=== PATIENT | female | born 1975 | race Caucasian/White ===

== ENCOUNTER 2016-09-28 22:33 | Emergency (ER) | payer MEDICAID ==
[2016-09-28 22:42] VITALS: BP 110/72
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
== END 2016-09-28 23:28 | disposition home or self-care (01) ==
LOC: DL.ED 22:33
DX: S63.502A Unspecified sprain of left wrist, initial encounter (principal); K21.9 Gastro-esophageal reflux disease without esophagitis; F41.9 Anxiety disorder, unspecified; F32.9 Major depressive disorder, single episode, unspecified; F17.210 Nicotine dependence, cigarettes, uncomplicated; D64.9 Anemia, unspecified; Z88.2 Allergy status to sulfonamides; Z90.49 Acquired absence of other specified parts of digestive tract; Z88.8 Allergy status to other drugs, medicaments and biological substances; Z79.899 Other long term (current) drug therapy; Z87.440 Personal history of urinary (tract) infections; X58.XXXA Exposure to other specified factors, initial encounter; Y92.009 Unspecified place in unspecified non-institutional (private) residence as the place of occurrence of the external cause
CPT/HCPCS: 73110-LT; 99283

== ENCOUNTER 2017-08-12 23:25 | Emergency (ER) | payer MEDICAID, SELFPAY ==
--- NOTE | 2017-08-12 23:35 | EDM.PDOC ---
ED HPI GENERAL MEDICAL PROBLEM - General Chief Complaint: General Stated Complaint: CONCUSSION? 3 NIGHTS AGO [id number] Time Seen by Provider: 08/12/17 23:35 Source of Information: Reports: Patient, Family History Limitations: Reports: No Limitations - History of Present Illness INITIAL COMMENTS - FREE TEXT/NARRATIVE: Presents with c/o generalized weakness fatigue, poor concentration. Hx fall on Wednesday when slipped on rug in [place]. fell first on to forehead, possible LOC. then got up and fell forward striking head on bathtub. Pain to left lide of jaw. Temporal Head Pain Score (Numeric/FACES): 3 - Related Data Allergies Allergy/AdvReac Type Severity Reaction Status Date / Time Sulfa (Sulfonamide Allergy Intermediate Hives Verified 08/12/17 23:50 Antibiotics) levofloxacin [From Levaquin] Allergy Muscle Verified 08/12/17 23:50 Aches Home Meds: Home Meds Lisdexamfetamine [Vyvanse] 1 tab PO DAILY 08/05/13 [History] Pregabalin [Lyrica] 300 mg PO BID 08/05/13 [History] Venlafaxine HCl [Venlafaxine ER] 0.5 tab PO ASDIRECTED 08/05/13 [History] oxyCODONE 10 mg PO QID 09/22/14 [History] Methocarbamol [Robaxin] 500 mg PO QID PRN 05/23/15 [History] Ibuprofen 200 mg PO Q6HR PRN 09/28/16 [History] Baclofen [Baclofen] 10 mg PO BID 08/12/17 [History] Past Medical History HEENT History: Reports: Impaired Vision, Sinusitis Cardiovascular History: Reports: None Respiratory History: Reports: Bronchitis, Recurrent Gastrointestinal History: Reports: GERD Genitourinary History: Reports: UTI, Recurrent 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 bulging discs. spinal stenosis Neurological History: Reports: Neuropathy, Peripheral Psychiatric History: Reports: Anxiety, Depression Endocrine/Metabolic History: Reports: None Hematologic History: Reports: Anemia Immunologic History: Reports: None Oncologic (Cancer) History: Reports: None Dermatologic History: Reports: None - Infectious Disease History Infectious Disease History: Reports: Chicken Pox - Past Surgical History Female Surgical History: Reports: Other (See Below) Social & Family History - Family History Family Medical History: Noncontributory - Tobacco Use Smoking Status *Q: Current Every Day Smoker Years of Tobacco use: 20 Packs/Tins Daily: 1 Used Tobacco, but Quit: No Second Hand Smoke Exposure: Yes - Caffeine Use Caffeine Use: Reports: Soda - Alcohol Use Days Per Week of Alcohol Use: 0 - Recreational Drug Use Recreational Drug Use: No - Sexual History Sexual History: Reports: Sexually Active - Living Situation & Occupation Living situation: Reports: with Significant Other Occupation: Employed ED ROS GENERAL - Review of Systems Review Of Systems: See Below Constitutional: Reports: Malaise, Weakness, Fatigue HEENT: Reports: No Symptoms Respiratory: Reports: Cough Cardiovascular: Reports: No Symptoms GI/Abdominal: Reports: No Symptoms : Reports: No Symptoms, Incontinence Skin: Reports: No Symptoms Neurological: Reports: Dizziness, Headache, Tingling, Weakness Psychiatric: Reports: No Symptoms Hematologic/Lymphatic: Reports: No Symptoms Immunologic: Reports: No Symptoms, Other (admits recent initiation of medication to treat hep C, question if current cymptoms related to medication or to fall. Has not followed up wit primary care. ) ED EXAM, GENERAL - Physical Exam Exam: See Below Exam Limited By: No Limitations General Appearance: Alert, No Apparent Distress, Anxious Eye Exam: Bilateral Eye: EOMI, Normal Inspection, Nystagmus, PERRL (5mm), Proptosis Ears: Normal External Exam, Normal TMs Ear Exam: Bilateral Ear: Canal Normal Nose: Normal Inspection Throat/Mouth: Normal Inspection, Normal Lips, Normal Teeth, Normal Gums Head: Atraumatic, Normocephalic Neck: Normal Inspection Respiratory/Chest: No Respiratory Distress Cardiovascular: Normal Peripheral Pulses, Regular Rate, Rhythm, No Murmur, Systolic Murmur GI/Abdominal: Normal Bowel Sounds, Soft. No: Distended Back Exam: Normal Inspection Extremities: Normal Inspection Neurological: Alert, Oriented, Normal Cognition, Memory Loss Recent Events. No : Disoriented, Slow to Respond Skin Exam: Warm, Dry, Intact, Normal Color Course - Vital Signs Last Recorded V/S: Last Vital Signs Temp 98 F 08/13/17 02:00 Pulse 68 08/13/17 02:00 Resp 18 08/13/17 02:00 BP 121/78 08/13/17 02:00 Pulse Ox 99 03/02/18 02:00 - Orders/Labs/Meds Labs: Laboratory Tests 08/13/17 08/13/17 08/13/17 Range/Units 00:38 00:38 00:47 WBC 4.8 L (5.0-10.0) 10^3/uL RBC 3.97 L (4.2-5.4) 10^6/uL Hgb 10.5 L (12.0-16.0) g/dL Hct 32.1 L (37.0-47.0) % MCV 80.9 D (80-100) fL MCH 26.4 L (27.0-34.0) pg MCHC 32.7 L (33.0-35.0) g/dL Plt Count 149 L (150-450) 10^3/uL Neut % (Auto) 36.6 L (42.2-75.2) % Lymph % (Auto) 43.1 (20.5-50.1) % [place] % (Auto) 13.8 H (2-8) % Eos % (Auto) 5.9 H (1.0-3.0) % Baso % (Auto) 0.6 (0.0-1.0) % Sodium 138 (135-145) mmol/L Potassium 3.8 (3.6-5.0) mmol/L Chloride 104 (101-111) mmol/L Carbon Dioxide 27.0 (21.0-31.0) mmol/L Anion Gap 10.8 BUN 8 (7-18) mg/dL Creatinine 0.6 (0.6-1.3) mg/dL Est Cr Clr Drug Dosing 113.27 mL/min Estimated GFR (MDRD) > 60 BUN/Creatinine Ratio 13.33 Glucose 94 (74-105) mg/dL Calcium 8.6 (8.4-10.2) mg/dl Magnesium 1.7 L (1.8-2.5) mg/dL Total Bilirubin 0.3 (0.2-1.0) mg/dL AST 23 (10-42) IU/L ALT 18 (10-60) IU/L Alkaline Phosphatase 55 (42-121) IU/L Total Protein 6.8 (6.7-8.2) g/dl Albumin 3.7 (3.2-5.5) g/dl Globulin 3.1 Albumin/Globulin Ratio 1.19 Urine Color Yellow (YELLOW) Urine Appearance Slightly cloudy (CLEAR) Urine pH 6.0 (5.0-9.0) Ur Specific [place] 1.020 (1.005-1.030) Urine Protein Negative (NEGATIVE) Urine Glucose (UA) Negative (NEGATIVE) Urine Ketones Negative (NEGATIVE) Urine Occult Blood Negative (NEGATIVE) Urine Nitrite Negative (NEGATIVE) Urine Bilirubin Negative (NEGATIVE) Urine Urobilinogen 0.2 (0.2-1.0) mg/dL Ur Leukocyte Esterase Negative (NEGATIVE) Urine RBC 0-5 /HPF Urine WBC 0-5 (0-5/HPF) /HPF Ur Epithelial Cells Many H /HPF Urine Bacteria Few (0-FEW/HPF) /HPF Urine Opiates Screen (NEGATIVE) Ur Oxycodone Screen (NEGATIVE) Urine Methadone Screen (NEGATIVE) Ur Barbiturates Screen (NEGATIVE) U Tricyclic Antidepress (NEGATIVE) Ur Phencyclidine Scrn (NEGATIVE) Ur Amphetamine Screen (NEGATIVE) U Methamphetamines Scrn (NEGATIVE) Urine MDMA Screen (NEGATIVE) U Benzodiazepines Scrn (NEGATIVE) Urine Cocaine Screen (NEGATIVE) U Marijuana (THC) Screen (NEGATIVE) 08/13/17 Range/Units 00:47 WBC (5.0-10.0) 10^3/uL RBC (4.2-5.4) 10^6/uL Hgb (12.0-16.0) g/dL Hct (37.0-47.0) % MCV (80-100) fL MCH (27.0-34.0) pg MCHC (33.0-35.0) g/dL Plt Count (150-450) 10^3/uL Neut % (Auto) (42.2-75.2) % Lymph % (Auto) (20.5-50.1) % [place] % (Auto) (2-8) % Eos % (Auto) (1.0-3.0) % Baso % (Auto) (0.0-1.0) % Sodium (135-145) mmol/L Potassium (3.6-5.0) mmol/L Chloride (101-111) mmol/L Carbon Dioxide (21.0-31.0) mmol/L Anion Gap BUN (7-18) mg/dL Creatinine (0.6-1.3) mg/dL Est Cr Clr Drug Dosing mL/min Estimated GFR (MDRD) BUN/Creatinine Ratio Glucose (74-105) mg/dL Calcium (8.4-10.2) mg/dl Magnesium (1.8-2.5) mg/dL Total Bilirubin (0.2-1.0) mg/dL AST (10-42) IU/L ALT (10-60) IU/L Alkaline Phosphatase (42-121) IU/L Total Protein (6.7-8.2) g/dl Albumin (3.2-5.5) g/dl Globulin Albumin/Globulin Ratio Urine Color (YELLOW) Urine Appearance (CLEAR) Urine pH (5.0-9.0) Ur Specific [place] (1.005-1.030) Urine Protein (NEGATIVE) Urine Glucose (UA) (NEGATIVE) Urine Ketones (NEGATIVE) Urine Occult Blood (NEGATIVE) Urine Nitrite (NEGATIVE) Urine Bilirubin (NEGATIVE) Urine Urobilinogen (0.2-1.0) mg/dL Ur Leukocyte Esterase (NEGATIVE) Urine RBC /HPF Urine WBC (0-5/HPF) /HPF Ur Epithelial Cells /HPF Urine Bacteria (0-FEW/HPF) /HPF Urine Opiates Screen Negative (NEGATIVE) Ur Oxycodone Screen Negative (NEGATIVE) Urine Methadone Screen Positive H (NEGATIVE) Ur Barbiturates Screen Negative (NEGATIVE) U Tricyclic Antidepress Negative (NEGATIVE) Ur Phencyclidine Scrn Negative (NEGATIVE) Ur Amphetamine Screen Positive H (NEGATIVE) U Methamphetamines Scrn Negative (NEGATIVE) Urine MDMA Screen Negative (NEGATIVE) U Benzodiazepines Scrn Negative (NEGATIVE) Urine Cocaine Screen Negative (NEGATIVE) U Marijuana (THC) Screen Negative (NEGATIVE) Meds: Medications Discontinued Medications Generic Name Dose Route Start Last Admin Trade Name Freq PRN Reason Stop Dose Admin Famotidine 20 mg 08/13/17 01:10 08/13/17 01:39 Pepcid IVPUSH 08/13/17 01:11 Not Given ONETIME ONE Hydromorphone HCl 1 mg 08/13/17 01:10 08/13/17 01:39 Dilaudid IVPUSH 08/13/17 01:11 Not Given ONETIME ONE - Radiology Interpretation Free Text/Narrative:: Head neck and facila CT negative - Re-Assessments/Exams Free Text/Narrative Re-Assessment/Exam: 08/13/17 05:52 Patient to follow up in am with Infectious Disease or Primary provider ordering Hep C medication. Patient aware of risk of "stopping medication such as this for Hep C treatment. Results of studies reviewed with patient and family. Reviewed adverse drug reaction and head injury instructions with patient and significant other. . Departure - Departure Time of Disposition: 01:50 Disposition: Home, Self-Care 01 Condition: Good Clinical Impression: Side effect of medication, Generalized weakness Fall in home Qualifiers: Encounter type: initial encounter Qualified Code(s): W19.XXXA - Unspecified fall, initial encounter Fatigue Qualifiers: Fatigue type: other Qualified Code(s): R53.83 - Other fatigue Headache Qualifiers: Headache type: unspecified Headache chronicity pattern: unspecified pattern Intractability: not intractable Qualified Code(s): R51 - Headache - Discharge Information Instructions: Concussion, Adult, [id number], Fatigue, Glecaprevir; pibrentasvir oral tablets Referrals: Ruel Montanez NP [Primary Care Provider] - Forms: ED Department Discharge Additional Instructions: rest light activity , change positions slowly Follow up with primary care in morning to discuss symptoms and possible medication side effects
[2017-08-13 01:11] LABS: CHLORIDE,CL 104 mmol/L (101-111); SODIUM,NA 138 mmol/L (135-145)
[2017-08-13] MEDS: Famotidine 20 MG/2 ML SDV IVPUSH ONE (01:39)
[2017-08-13] MEDS: HYDROmorphone 1 MG/ML Syringe IVPUSH ONE (01:39)
[2017-08-13 02:15] VITALS: BP 121/78
== END 2017-08-13 02:04 | disposition home or self-care (01) ==
LOC: DL.ED 23:25
DX: R51 Headache (principal); R53.1 Weakness; R53.83 Other fatigue; T50.905A Adverse effect of unspecified drugs, medicaments and biological substances, initial encounter; F17.210 Nicotine dependence, cigarettes, uncomplicated; Z88.2 Allergy status to sulfonamides; Z88.1 Allergy status to other antibiotic agents; Z79.899 Other long term (current) drug therapy; W01.198A Fall on same level from slipping, tripping and stumbling with subsequent striking against other object, initial encounter
CPT/HCPCS: 36415; 70450; 70486; 72125; 80053; 80305; 81001; 83735; 85025; 99284

== ENCOUNTER 2018-03-18 16:30 | Emergency (ER) | payer MEDICAID ==
[2018-03-18 16:45] VITALS: BP 150/90
--- NOTE | 2018-03-18 17:41 | EDM.PDOC ---
Scribed by Cadence Dunne 03/18/18 [id number] for Pj Babcock MD ED HPI GENERAL MEDICAL PROBLEM - General Chief Complaint: ENT Problem Stated Complaint: EAR INFECTION, STREP [id number] Time Seen by Provider: 03/18/18 16:52 Source of Information: Reports: Patient, RN, RN Notes Reviewed History Limitations: Reports: No Limitations - History of Present Illness INITIAL COMMENTS - FREE TEXT/NARRATIVE: Patient presents to ER with complaint of bilateral ear pain, sore throat, vaginal yeast infection and dysuria for the past several days. Admits to fever and chills sensation but has not measured her temperature.About 10 days she had stomach flu with nausea, vomiting and diarrhea but states that has all resolved. Onset: Gradual Duration: Getting Worse Location: Reports: Generalized Quality: Reports: Ache Severity: Moderate Improves with: Reports: None Worsens with: Reports: None Associated Symptoms: Reports: No Other Symptoms - Related Data Allergies Allergy/AdvReac Type Severity Reaction Status Date / Time Sulfa (Sulfonamide Allergy Intermediate Hives Verified 08/12/17 23:50 Antibiotics) levofloxacin [From Levaquin] Allergy Muscle Verified 08/12/17 23:50 Aches Home Meds: Home Meds Lisdexamfetamine [Vyvanse] 1 tab PO DAILY 08/05/13 [History] Pregabalin [Lyrica] 300 mg PO BID 08/05/13 [History] Ibuprofen 200 mg PO Q6HR PRN 09/28/16 [History] Baclofen 10 mg PO BID 08/12/17 [History] Past Medical History HEENT History: Reports: Impaired Vision, Sinusitis Cardiovascular History: Reports: None Respiratory History: Reports: Bronchitis, Recurrent Gastrointestinal History: Reports: GERD Genitourinary History: Reports: UTI, Recurrent 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 bulging discs. spinal stenosis Neurological History: Reports: Neuropathy, Peripheral Psychiatric History: Reports: Anxiety, Depression Endocrine/Metabolic History: Reports: None Hematologic History: Reports: Anemia Immunologic History: Reports: None Oncologic (Cancer) History: Reports: None Dermatologic History: Reports: None - Infectious Disease History Infectious Disease History: Reports: Chicken Pox - Past Surgical History Female Surgical History: Reports: Other (See Below) Social & Family History - Family History Family Medical History: Noncontributory - Caffeine Use Caffeine Use: Reports: Soda - Sexual History Sexual History: Reports: Sexually Active - Living Situation & Occupation Living situation: Reports: with Significant Other Occupation: Employed ED ROS ENT - Review of Systems Review Of Systems: ROS reveals no pertinent complaints other than HPI. ED EXAM, ENT - Physical Exam Exam: See Below Exam Limited By: No Limitations General Appearance: Alert, WD/WN, No Apparent Distress Eye Exam: Bilateral Eye: Normal Inspection Ears: Other (slightly bulging, erythematous and dull without perforation or drainage. ) Nose: No Blood, Injected Turbinates, Other (purulent sinus drainage) Mouth/Throat: Normal Gums, Normal Lips, Normal Teeth, Pharyngeal Erythema (with post nasal drip) Head: Atraumatic, Normocephalic Neck: Other (shoddy cervical lymphadenopathy. No nuchal rigidity.) Respiratory/Chest: No Respiratory Distress, Lungs Clear, Normal Breath Sounds, No Accessory Muscle Use, Chest Non-Tender Cardiovascular: Normal Peripheral Pulses, Regular Rate, Rhythm, No Edema, No Gallop, No JVD, No Murmur, No Rub GI/Abdominal: Normal Bowel Sounds, Soft, Non-Tender, No Distention (Female) Exam: Deferred Rectal (Female) Exam: Deferred Back: Normal Inspection, Full Range of Motion Extremities: Normal Inspection Neurological: Alert, Oriented, No Motor/Sensory Deficits Psychiatric: Normal Affect, Normal Mood Skin: Warm, Dry, Intact, Normal Color, No Rash Course - Vital Signs Last Recorded V/S: Last Vital Signs Temp 36.7 C 03/18/18 16:44 Pulse 102 H 03/18/18 16:44 Resp 14 03/18/18 16:44 BP 150/90 H 03/18/18 16:44 Pulse Ox 100 03/18/18 16:44 - Orders/Labs/Meds Orders: Active Orders 24 hr Category Date Time Status CULTURE STREP A CONFIRMATION [] Stat Lab 03/18/18 16:34 Results STREP SCRN A RAPID W CULT CONF [] Stat Lab 03/18/18 16:34 Results Labs: Laboratory Tests 03/18/18 03/18/18 Range/Units 17:00 17:00 Urine Color Yellow (YELLOW) Urine Appearance Slightly cloudy (CLEAR) Urine pH 7.0 (5.0-9.0) Ur Specific [place] 1.020 (1.005-1.030) Urine Protein Negative (NEGATIVE) Urine Glucose (UA) Negative (NEGATIVE) Urine Ketones Negative (NEGATIVE) Urine Occult Blood Negative (NEGATIVE) Urine Nitrite Negative (NEGATIVE) Urine Bilirubin Negative (NEGATIVE) Urine Urobilinogen 0.2 (0.2-1.0) mg/dL Ur Leukocyte Esterase Negative (NEGATIVE) Urine RBC 0-5 /HPF Urine WBC 0-5 (0-5/HPF) /HPF Ur Epithelial Cells Moderate H /HPF Amorphous Sediment Rare (0/HPF) /HPF Urine Bacteria Few (0-FEW/HPF) /HPF Urine Mucus Few H /LPF Urine Yeast Few H (0/HPF) /HPF Urine HCG, Qual Negative Rapid strep: Negative. Departure - Departure Time of Disposition: 17:34 Disposition: Home, Self-Care 01 Condition: Good Clinical Impression: Vaginal yeast infection Otitis media Qualifiers: Otitis media type: suppurative Chronicity: acute Laterality: bilateral Recurrence: not specified as recurrent Spontaneous tympanic membrane rupture: without spontaneous rupture Qualified Code(s): H66.003 - Acute suppurative otitis media without spontaneous rupture of ear drum, bilateral Pharyngitis Qualifiers: Pharyngitis/tonsillitis etiology: other specified organisms Qualified Code(s): J02.8 - Acute pharyngitis due to other specified organisms Sinusitis Qualifiers: Sinusitis location: pansinusitis Chronicity: acute Recurrence: non-recurrent Qualified Code(s): J01.40 - Acute pansinusitis, unspecified - Discharge Information Instructions: Otitis Media, Adult, [id number], Sinusitis, Adult, [id number] , Vaginal Yeast Infection, Adult Forms: ED Department Discharge Additional Instructions: RX: Augmentin 875mg. RX: Diflucan 150mg. Frequent salt water gargles until sore throat. Follow up in clinic if not improving in 4 to 5 days. - My Orders Last 24 Hours: My Active Orders 03/18/18 16:34 CULTURE STREP A CONFIRMATION [RM] Stat STREP SCRN A RAPID W CULT CONF [RM] Stat - Assessment/Plan Last 24 Hours: My Active Orders 03/18/18 16:34 CULTURE STREP A CONFIRMATION [RM] Stat STREP SCRN A RAPID W CULT CONF [RM] Stat I have read and agree with the documentation that has been completed regarding this visit. By signing this record, I attest that the documentation was completed in my physical presence and is an accurate record of the encounter.
== END 2018-03-18 17:47 | disposition home or self-care (01) ==
LOC: DL.ED 16:30
DX: H66.003 Acute suppurative otitis media without spontaneous rupture of ear drum, bilateral (principal); B37.3 Candidiasis of vulva and vagina; J02.8 Acute pharyngitis due to other specified organisms; J01.40 Acute pansinusitis, unspecified; F17.210 Nicotine dependence, cigarettes, uncomplicated; Z88.2 Allergy status to sulfonamides; Z88.1 Allergy status to other antibiotic agents; Z79.899 Other long term (current) drug therapy
CPT/HCPCS: 81001; 81025; 87081; 87430; 99282

== ENCOUNTER 2018-03-20 09:47 | Emergency (ER) | payer MEDICAID ==
[2018-03-20 09:54] VITALS: BP 130/79
--- NOTE | 2018-03-20 10:19 | CR ---
Clinical history: 42-year-old female with cough and chest wall pain. Interpretation: Slight dorsolumbar scoliosis. Layne thorax otherwise unremarkable. No sign of rib fracture, pleural hematoma, lung contusion or pneumothorax. Normal cardiac silhouette without cephalization of vascular flow, alveolar edema or dependent pleural effusion. *No lung mass, hilar lymphadenopathy or focal lobar pneumonia. No atelectasis/collapse. CONCLUSION: No acute new cardiopulmonary abnormality when compared to 11 February 2010 film.
--- NOTE | 2018-03-20 10:21 | EDM.PDOC ---
Scribed by Cadence uDnne 03/20/18 1020 for Pj Babcock MD ED HPI GENERAL MEDICAL PROBLEM - General Chief Complaint: Respiratory Problem Stated Complaint: CHEST CONGESTION Time Seen by Provider: 03/20/18 09:50 Source of Information: Reports: Patient, RN, RN Notes Reviewed History Limitations: Reports: Respiratory Distress - History of Present Illness INITIAL COMMENTS - FREE TEXT/NARRATIVE: Patient complains of development of cough, occasional sputum production but mostly dry. It hurts to breathe. Denies any wheezing. She was here on 03/18/18 and diagnosed with sinusitis and otitis media. She has been taking Augmentin 875mg. She does not note much improvement in her sinus or ears yet. Onset: Gradual Duration: Getting Worse Location: Reports: Generalized Quality: Reports: Ache Severity: Severe Improves with: Reports: None Worsens with: Reports: None Associated Symptoms: Reports: No Other Symptoms - Related Data Allergies Allergy/AdvReac Type Severity Reaction Status Date / Time Sulfa (Sulfonamide Allergy Intermediate Hives Verified 03/20/18 09:53 Antibiotics) levofloxacin [From Levaquin] Allergy Muscle Verified 03/20/18 09:53 Aches Home Meds: Home Meds Lisdexamfetamine [Vyvanse] 1 tab PO DAILY 08/05/13 [History] Pregabalin [Lyrica] 300 mg PO BID 08/05/13 [History] Ibuprofen 200 mg PO Q6HR PRN 09/28/16 [History] Baclofen 10 mg PO BID 08/12/17 [History] Amoxicillin/Potassium Clav [Amox-Clav 875-125 mg Tablet] 1 tab PO BID 03/20/18 [ History] Fluconazole [Diflucan] 150 mg PO ASDIRECTED 03/20/18 [History] Past Medical History HEENT History: Reports: Impaired Vision, Sinusitis Cardiovascular History: Reports: None Respiratory History: Reports: Bronchitis, Recurrent Gastrointestinal History: Reports: GERD Genitourinary History: Reports: UTI, Recurrent 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 bulging discs. spinal stenosis Neurological History: Reports: Neuropathy, Peripheral Psychiatric History: Reports: Anxiety, Depression Endocrine/Metabolic History: Reports: None Hematologic History: Reports: Anemia Immunologic History: Reports: None Oncologic (Cancer) History: Reports: None Dermatologic History: Reports: None - Infectious Disease History Infectious Disease History: Reports: Chicken Pox - Past Surgical History Female Surgical History: Reports: Other (See Below) Social & Family History - Family History Family Medical History: Noncontributory - Caffeine Use Caffeine Use: Reports: Soda - Sexual History Sexual History: Reports: Sexually Active - Living Situation & Occupation Living situation: Reports: with Significant Other Occupation: Employed ED ROS GENERAL - Review of Systems Review Of Systems: ROS reveals no pertinent complaints other than HPI. ED EXAM, GENERAL - Physical Exam Exam: See Below Exam Limited By: No Limitations General Appearance: Alert, WD/WN, No Apparent Distress, Anxious Eye Exam: Bilateral Eye: Normal Inspection Ears: Normal Canal, Hearing Grossly Normal, Other (Dull TM's B/L) Nose: No Blood, Other (Injected inferior turbinates) Throat/Mouth: Normal Inspection, Normal Lips, Normal Teeth, Normal Gums, Normal Oropharynx, Normal Voice, No Airway Compromise Head: Atraumatic, Normocephalic Neck: Other ([place] cervical lymphadenopathy, no nuchal rigidity) Respiratory/Chest: No Respiratory Distress, Lungs Clear, Normal Breath Sounds, No Accessory Muscle Use, Other (Dry cough). No: Crackles, Rales, Rhonchi, Wheezing, Splinting Cardiovascular: Regular Rate, Rhythm Back Exam: Normal Inspection Extremities: Normal Inspection Neurological: Alert, Oriented, CN II-XII Intact, Normal Cognition, Normal Gait, No Motor/Sensory Deficits Psychiatric: Normal Affect, Anxious Skin Exam: Warm, Dry, Intact, Normal Color, No Rash Course - Vital Signs Last Recorded V/S: Last Vital Signs Temp 37.1 C 03/20/18 09:53 Pulse 90 03/20/18 09:53 Resp 16 03/20/18 09:53 BP 130/79 03/20/18 09:53 Pulse Ox 99 03/20/18 09:53 - Orders/Labs/Meds Orders: Active Orders 24 hr Category Date Time Status Chest 2V [CR] Stat Exams 03/20/18 09:59 Taken Labs: Laboratory Tests 03/20/18 Range/Units 10:08 WBC 7.2 (5.0-10.0) 10^3/uL RBC 4.38 (4.2-5.4) 10^6/uL Hgb 10.3 L (12.0-16.0) g/dL Hct 33.5 L (37.0-47.0) % MCV 76.5 L D (80-100) fL MCH 23.5 L (27.0-34.0) pg MCHC 30.7 L (33.0-35.0) g/dL Plt Count 164 (150-450) 10^3/uL Neut % (Auto) 65.7 (42.2-75.2) % Lymph % (Auto) 23.6 (20.5-50.1) % [place] % (Auto) 7.9 (2-8) % Eos % (Auto) 2.4 (1.0-3.0) % Baso % (Auto) 0.4 (0.0-1.0) % - Radiology Interpretation Free Text/Narrative:: CXR: no focal consolidations, see Rad. report. Departure - Departure Time of Disposition: 10:17 Disposition: Home, Self-Care 01 Condition: Fair Clinical Impression: Pleurodynia Acute bronchitis Qualifiers: Bronchitis organism: other organism Qualified Code(s): J20.8 - Acute bronchitis due to other specified organisms - Discharge Information *PRESCRIPTION DRUG MONITORING PROGRAM REVIEWED*: No *COPY OF PRESCRIPTION DRUG MONITORING REPORT IN PATIENT MIAH: No Instructions: Acute Bronchitis, Adult, Pleurodynia Forms: ED Department Discharge Additional Instructions: Rx: Promethazine Codeine Syrup *Do not drive while under the influence of this medication. Rx: Prednisone 20mg *Take with food. Continue current antibiotic as prescribed. Take deep breathes several times once every hour while awake. Follow up in clinic in 3 to 5 days. - My Orders Last 24 Hours: My Active Orders 03/20/18 09:59 Chest 2V [CR] Stat - Assessment/Plan Last 24 Hours: My Active Orders 03/20/18 09:59 Chest 2V [CR] Stat I have read and agree with the documentation that has been completed regarding this visit. By signing this record, I attest that the documentation was completed in my physical presence and is an accurate record of the encounter.
== END 2018-03-20 10:30 | disposition home or self-care (01) ==
LOC: DL.ED 09:47
DX: J20.8 Acute bronchitis due to other specified organisms (principal); R07.81 Pleurodynia; Z88.1 Allergy status to other antibiotic agents; Z88.2 Allergy status to sulfonamides; Z79.899 Other long term (current) drug therapy
CPT/HCPCS: 36415; 71046; 85025; 99284

== ENCOUNTER 2019-03-31 19:52 | Emergency (ER) | payer MEDICAID ==
[2019-03-31 20:42] VITALS: BP 134/81; PULSE 109
[2019-03-31] MEDS ORDERED: Azithromycin 250 MG Tab PO ONE (22:17)
[2019-03-31] MEDS ORDERED: Nitrofurantoin Monohydrate/Macrocrystalline 100 MG Cap PO ONE (22:17)
[2019-03-31] MEDS ORDERED: Phenazopyridine 95 MG Tab PO ONE (22:17)
[2019-03-31] MEDS ORDERED: Fluconazole 100 MG Tab PO ONE (22:17)
--- NOTE | 2019-03-31 22:23 | EDM.PDOC ---
ED HPI GENERAL MEDICAL PROBLEM - General Chief Complaint: Genitourinary Problem Stated Complaint: BLADDER INFECTION Time Seen by Provider: 03/31/19 22:19 Source of Information: Reports: Patient History Limitations: Reports: No Limitations - History of Present Illness INITIAL COMMENTS - FREE TEXT/NARRATIVE: 2 days h/o UTI Sx and 1 week h/o sore throat. been on augmentin but not working. Generalized Pain Score (Numeric/FACES): 6 - Related Data Allergies Allergy/AdvReac Type Severity Reaction Status Date / Time Sulfa (Sulfonamide Allergy Intermediate Hives Verified 03/31/19 20:28 Antibiotics) levofloxacin [From Levaquin] Allergy Muscle Verified 03/31/19 20:28 Aches Home Meds: Home Meds Lisdexamfetamine [Vyvanse] 60 mg PO DAILY 08/05/13 [History] Pregabalin [Lyrica] 300 mg PO BID 08/05/13 [History] Ibuprofen 200 mg PO Q6HR PRN 09/28/16 [History] Baclofen 10 mg PO BID 08/12/17 [History] Methocarbamol 500 mg PO TID 03/31/19 [History] Past Medical History HEENT History: Reports: Impaired Vision, Sinusitis Cardiovascular History: Reports: None Respiratory History: Reports: Bronchitis, Recurrent Gastrointestinal History: Reports: GERD Genitourinary History: Reports: UTI, Recurrent [employer] WORKER History: Reports: None Musculoskeletal History: Reports: Back Pain, Chronic Other Musculoskeletal History: degenerative disc dx. bulging discs. spinal stenosis Neurological History: Reports: Neuropathy, Peripheral Psychiatric History: Reports: Anxiety, Depression Endocrine/Metabolic History: Reports: None Hematologic History: Reports: Anemia Immunologic History: Reports: None Oncologic (Cancer) History: Reports: None Dermatologic History: Reports: None - Infectious Disease History Infectious Disease History: Reports: Chicken Pox - Past Surgical History Female Surgical History: Reports: Other (See Below) Social & Family History - Family History Family Medical History: Noncontributory - Tobacco Use Smoking Status *Q: Current Every Day Smoker Years of Tobacco use: 20 Packs/Tins Daily: 0.5 - Caffeine Use Caffeine Use: Reports: Soda - Recreational Drug Use Recreational Drug Use: No - Sexual History Sexual History: Reports: Sexually Active - Living Situation & Occupation Living situation: Reports: with Significant Other Occupation: Employed ED ROS GENERAL - Review of Systems Review Of Systems: ROS reveals no pertinent complaints other than HPI. ED EXAM, RENAL/ - Physical Exam Exam: See Below Exam Limited By: No Limitations General Appearance: Alert, WD/WN, Mild Distress, Other (discomfort) Ears: Hearing Grossly Normal Throat/Mouth: Normal Voice, No Airway Compromise, Other (pharyneal erythma) Head: Atraumatic Neck: Non-Tender, Full Range of Motion Respiratory/Chest: No Respiratory Distress Cardiovascular: Regular Rate, Rhythm GI/Abdominal: Soft, Non-Tender Neurological: Alert, Oriented, Normal Cognition, Normal Gait, No Motor/Sensory Deficits Psychiatric: Tearful Skin Exam: Warm, Dry, Normal Color Lymphatic: No Adenopathy Course - Vital Signs Last Recorded V/S: Last Vital Signs Temp 37.1 C 03/31/19 20:32 Pulse 109 H 03/31/19 20:32 Resp 16 03/31/19 20:32 BP 134/81 03/31/19 20:32 Pulse Ox 98 03/31/19 20:32 - Orders/Labs/Meds Orders: Active Orders 24 hr Category Date Time Status CULTURE STREP A CONFIRMATION [RM] Stat Lab 03/31/19 20:39 Results CULTURE URINE [] Stat Lab 03/31/19 20:39 Received STREP SCRN A RAPID W CULT CONF [RM] Stat Lab 03/31/19 20:39 Results Labs: Laboratory Tests 03/31/19 Range/Units 20:39 Urine Color Yellow (YELLOW) Urine Appearance Slightly cloudy (CLEAR) Urine pH 5.5 (5.0-9.0) Ur Specific [place] >= 1.030 (1.005-1.030) Urine Protein Negative (NEGATIVE) Urine Glucose (UA) Negative (NEGATIVE) Urine Ketones Trace H (NEGATIVE) Urine Occult Blood Negative (NEGATIVE) Urine Nitrite Negative (NEGATIVE) Urine Bilirubin Negative (NEGATIVE) Urine Urobilinogen 0.2 (0.2-1.0) mg/dL Ur Leukocyte Esterase Trace H (NEGATIVE) Urine RBC Not seen /HPF Urine WBC 10-20 H (0-5/HPF) /HPF Ur Epithelial Cells Moderate H (NOT SEEN) /HPF Urine Bacteria Moderate H (0-FEW/HPF) /HPF Urine Mucus Moderate H (NOT SEEN) /LPF Meds: Medications Discontinued Medications Generic Name Dose Route Start Last Admin Trade Name Freq PRN Reason Stop Dose Admin Azithromycin 500 mg 03/31/19 22:17 Zithromax PO 03/31/19 22:18 ONETIME ONE Fluconazole 100 mg 03/31/19 22:17 Diflucan PO 03/31/19 22:18 ONETIME ONE Nitrofurantoin Macrocrystals 100 mg 03/31/19 22:17 Macrobid PO 03/31/19 22:18 ONETIME ONE Phenazopyridine HCl 95 mg 03/31/19 22:17 Urinary Pain Relief PO 03/31/19 22:18 ONETIME ONE - Re-Assessments/Exams Free Text/Narrative Re-Assessment/Exam: 03/31/19 22:20 results discussed with pt. Departure - Departure Time of Disposition: 22:21 Disposition: Home, Self-Care 01 Condition: Good Clinical Impression: UTI, Urinary tract infectious disease, Vaginal yeast infection Pharyngitis Qualifiers: Pharyngitis/tonsillitis etiology: other specified organisms Qualified Code(s): J02.8 - Acute pharyngitis due to other specified organisms - Discharge Information Additional Instructions: 1) avoid solid foods and scratchy foods 2) drink lots of liquids 3) follow up at clinic rx blancavne; z-steph macrobid 100mg bid x 20 pyridium 100mg tid prn x 12 - My Orders Last 24 Hours: My Active Orders 03/31/19 20:39 CULTURE STREP A CONFIRMATION [RM] Stat CULTURE URINE [RM] Stat STREP SCRN A RAPID W CULT CONF [RM] Stat - Assessment/Plan Last 24 Hours: My Active Orders 03/31/19 20:39 CULTURE STREP A CONFIRMATION [RM] Stat CULTURE URINE [RM] Stat STREP SCRN A RAPID W CULT CONF [RM] Stat
== END 2019-03-31 22:26 | disposition home or self-care (01) ==
LOC: DL.ED 19:52
DX: N39.0 Urinary tract infection, site not specified (principal); B37.3 Candidiasis of vulva and vagina; J02.8 Acute pharyngitis due to other specified organisms; F17.210 Nicotine dependence, cigarettes, uncomplicated; Z88.2 Allergy status to sulfonamides; Z88.1 Allergy status to other antibiotic agents
CPT/HCPCS: 81001; 87081; 87086; 87430; 99283; A9270; 87186

== ENCOUNTER 2019-09-11 06:35 | Day surgery (SDC) | payer MEDICAID ==
[2019-09-11] MEDS ORDERED: Midazolam 1 MG/ML 2 ML SDV IV ONE ×3 (06:36→07:31)
[2019-09-11] MEDS ORDERED: fentaNYL 100 MCG/2 ML SDV IV ONE ×3 (06:36→07:29)
[2019-09-11] MEDS ORDERED: Midazolam 1 MG/ML 2 ML SDV ONE (06:44)
[2019-09-11] MEDS ORDERED: fentaNYL 100 MCG/2 ML SDV ONE (06:44)
[2019-09-11] MEDS ORDERED: Dextrose 5%-0.45% NaCl 1,000 ML IV SCH (07:30)
[2019-09-11 10:03] VITALS: BP 106/68; PULSE 71
--- NOTE | 2019-09-11 12:52 | OR ---
DATE: 09/10/2019 PROCEDURES: Esophagogastroduodenoscopy and multiple pinch biopsies. INSTRUMENT USED: [id number]-HQ190 Olympus video panendoscope. PREMEDICATIONS: No oral or topical anesthesia used. Fentanyl 100 mcg intravenous, Versed 2 mg intravenous, nasal O2 cannula. The procedure was done under pulse oximetry, BP recording, and copy center operator. INDICATION: The patient with multiple longstanding abdominal symptoms and recent iron-deficiency anemia, unexplained. Esophagogastroduodenoscopy is performed for detection of any active erosive lesions, Bryant esophagus and/or malignancy also under consideration, H pylori status to be determined, small bowel biopsies to be obtained for celiac disease, endoscopic hemostasis therapy if needed. PROCEDURE IN DETAIL: The scope was passed with ease. Adequate visualization of the esophagus was made from proximal to distal areas. No upper esophageal lesions identified. No distal esophageal stricture. No uphill or downhill esophageal varices. No Linette-Odell tear. No evidence of erosive esophagitis by [place] criteria. No esophageal polyp or tumor mass identified. Z-line was seen at around 40 cm distal to the oral verge, configuration consistent with grade 1 by ZAP classification. No proximal gastric varices noted. Gastric fundus examination by retroflexion showed no polypoid lesions. No gastric ulcer, malignant mass, or vascular ectasia identified. Duodenal bulb showed no ulcer. Visualized second part of the duodenum was unremarkable. Multiple pinch biopsies, 4 in number, were taken from different areas of the second part of the duodenum, and tissues were also obtained from the duodenal bulb at 9 and 12 o'clock positions and sent for any histopathologic evidence of celiac disease. Multiple pinch biopsies were also taken from the gastric antrum and proximal body and sent for PyloriTek test for H pylori and histopathology. No bleeding was noted from any of the visualized areas at the completion of examination. Photographs were taken of the duodenal bulb, gastric antrum, fundus, and distal esophagus. IMPRESSION: Normal study. The patient tolerated the procedure well. [facility] /[id number]
--- NOTE | 2019-09-11 13:25 | LETTER ---
09/11/2019 Lillian Nguyen, SHIRA [address] [id number] RE: KANDACE CASAS AYUSH : 1975 Dear Ms. Nguyen: Ms. Kandace Casas had esophagogastroduodenoscopy done this morning and she tolerated the procedure well. I herewith send a copy of the endoscopy note and photographs for your review. Thank you. Sincerely, [facility] /[id number]
== END 2019-09-11 09:49 | disposition home or self-care (01) ==
LOC: DL.ENDO 06:35
PROVIDERS: ATTEND Internal Medicine Gastroenterology
DX: K29.50 Unspecified chronic gastritis without bleeding (principal); K59.00 Constipation, unspecified; D50.9 Iron deficiency anemia, unspecified; E53.8 Deficiency of other specified B group vitamins; K21.9 Gastro-esophageal reflux disease without esophagitis; R19.7 Diarrhea, unspecified; K62.5 Hemorrhage of anus and rectum; R35.0 Frequency of micturition; M54.5 Low back pain; B18.2 Chronic viral hepatitis C; F41.1 Generalized anxiety disorder; F32.9 Major depressive disorder, single episode, unspecified; F11.21 Opioid dependence, in remission; F17.210 Nicotine dependence, cigarettes, uncomplicated; K58.9 Irritable bowel syndrome, unspecified; G89.4 Chronic pain syndrome; Z98.51 Tubal ligation status; Z90.49 Acquired absence of other specified parts of digestive tract; Z86.59 Personal history of other mental and behavioral disorders; Z86.19 Personal history of other infectious and parasitic diseases; Z98.890 Other specified postprocedural states
CPT/HCPCS: 43239; 87077; J2250; J3010; J7042

== ENCOUNTER 2019-09-18 06:32 | Day surgery (SDC) | payer MEDICAID ==
[~2019-09-18 06:32] MED LIST: Midazolam 1 MG/ML 2 ML SDV ONE; fentaNYL 100 MCG/2 ML SDV ONE
[2019-09-18] MEDS ORDERED: Midazolam 1 MG/ML 2 ML SDV IV ONE ×8 (06:33→08:09)
[2019-09-18] MEDS ORDERED: fentaNYL 100 MCG/2 ML SDV IV ONE ×5 (06:33→07:58)
[2019-09-18] MEDS ORDERED: Dextrose 5%-0.45% NaCl 1,000 ML IV SCH (07:05)
[2019-09-18 09:01] VITALS: PULSE 90
[2019-09-18 12:05] VITALS: BP 111/71
--- NOTE | 2019-09-18 12:56 | OR ---
DATE: 09/18/2019 PROCEDURE: Total colonoscopy. INSTRUMENT USED: [id number]-[id number] Olympus video colonoscope. PREMEDICATIONS: Fentanyl 200 mcg intravenous, Versed 5 mg intravenous. The procedure was done under pulse oximetry, BP recording, and satellite project site monitor. INDICATION: The patient with unexplained iron deficiency anemia. Colonoscopic examination is done for detection of any polypoid lesions and removal, endoscopic hemostasis therapy if needed. DESCRIPTION OF PROCEDURE: Initial rectal exam was unremarkable. Rigid anoscopy was normal. The colonoscope was passed with ease up to the ileocecal area. Photographs were taken of the normal-appearing cecum, identified by landmarks of appendiceal orifice and double-bulged ileocecal folds. No bleeding was noted from any of the visualized areas at the commencement of the examination. The bowel preparation was found to be adequate. [place] scale 3 in all the regions, total score 9. No stricture. No vascular ectasia. No large isolated ulcerations seen. No evidence of diffuse inflammatory bowel disease in the form of friability, contact bleeding, or ulcerations. No polyp or tumor mass identified. Probing the proximal sides of folds and flexures using adequate distention and clearing up the stool material, withdrawal of the scope was made. Cecum to rectum time over 6 minutes. No bleeding was noted from any of the visualized areas at the completion of examination. IMPRESSION: Normal study. The patient tolerated the procedure well. [facility] /[id number]
--- NOTE | 2019-09-18 14:13 | LETTER ---
09/18/2019 Lillian Nguyen, [facility] [address] [place] [id number] RE: YUSEF CASAS AYUSH : 1975 Dear Ms. Nguyen: Ms. Yusef Casas had colonoscopic examination done this morning and she tolerated the procedure well. I herewith send a copy of the endoscopy note and photographs for your review. Thank you. Sincerely, [facility] /[id number]
== END 2019-09-18 10:05 | disposition home or self-care (01) ==
LOC: DL.ENDO 06:32
PROVIDERS: ATTEND Internal Medicine Gastroenterology
DX: D50.9 Iron deficiency anemia, unspecified (principal); E53.8 Deficiency of other specified B group vitamins; K21.9 Gastro-esophageal reflux disease without esophagitis; F41.1 Generalized anxiety disorder; F32.9 Major depressive disorder, single episode, unspecified; K58.9 Irritable bowel syndrome, unspecified; G89.4 Chronic pain syndrome; M54.5 Low back pain; F11.21 Opioid dependence, in remission; F17.210 Nicotine dependence, cigarettes, uncomplicated; Z86.19 Personal history of other infectious and parasitic diseases; Z98.890 Other specified postprocedural states; Z90.49 Acquired absence of other specified parts of digestive tract; Z98.51 Tubal ligation status
CPT/HCPCS: G0121; J2250; J3010; J7042

== ENCOUNTER 2019-10-10 15:11 | Emergency (ER) | payer MEDICAID ==
--- NOTE | 2019-10-10 15:40 | EDM.PDOC ---
ED HPI GENERAL MEDICAL PROBLEM - General Chief Complaint: Abdominal Pain Stated Complaint: pain in right side Time Seen by Provider: 10/10/19 15:34 Source of Information: Reports: Patient History Limitations: Reports: No Limitations - History of Present Illness INITIAL COMMENTS - FREE TEXT/NARRATIVE: This 44 yo female patient reports to the ED with right sided abdominal pain and right sided flank pain. The patient reports her symptoms started yesterday, but have gotten worse throughout the day today. The patient reports she did take ibuprofen yesterday, but has not take anything today. The patient reports she has not seen her primary care facility, but did call a nurse in [place] and was advised to come to the ED. The patient reports she does have a history of IBD and has seen Dr. Sanchez in the past. The patient reports she has not seen Dr. Sanchez recently. Onset Date: 10/09/19 Duration: Constant, Getting Worse Location: Reports: Abdomen (right sided) Quality: Reports: Ache, Sharp, Stabbing Severity: Moderate Improves with: Reports: None Worsens with: Reports: None Context: Reports: Other Associated Symptoms: Reports: No Other Symptoms Treatments SENIOR CLINICAL CONSULTANT: Reports: NSAIDS Right Lower Abdomen Pain Score (Numeric/FACES): 7 - Related Data Allergies Allergy/AdvReac Type Severity Reaction Status Date / Time Sulfa (Sulfonamide Allergy Intermediate Hives Verified 10/10/19 15:57 Antibiotics) aspirin Allergy Cannot Verified 10/10/19 15:57 Remember levofloxacin [From Levaquin] Allergy Muscle Verified 10/10/19 15:57 Aches Home Meds: Home Meds Lisdexamfetamine [Vyvanse] 60 mg PO DAILY 08/05/13 [History] Pregabalin [Lyrica] 300 mg PO BID 08/05/13 [History] Ibuprofen 200 mg PO Q6HR PRN 09/28/16 [History] methocarbamoL [Methocarbamol] 500 mg PO TID 03/31/19 [History] Cetirizine HCl/Pseudoephedrine [ZyrTEC-D] 1 each PO DAILY 09/11/19 [History] Fluticasone Propionate [Flonase Allergy Relief] 1 - 2 spray NASBOTH DAILY PRN [History] Omeprazole 20 mg PO DAILY 09/11/19 [History] Past Medical History HEENT History: Reports: Impaired Vision, Sinusitis Cardiovascular History: Reports: None Respiratory History: Reports: Bronchitis, Recurrent, Sleep Apnea Gastrointestinal History: Reports: GERD Genitourinary History: Reports: UTI, Recurrent [employer] OPERATIONS DIRECTOR History: Reports: None Musculoskeletal History: Reports: Back Pain, Chronic Other Musculoskeletal History: degenerative disc dx. bulging discs. spinal stenosis Neurological History: Reports: Neuropathy, Peripheral Psychiatric History: Reports: Anxiety, Depression Endocrine/Metabolic History: Reports: None Hematologic History: Reports: Anemia Immunologic History: Reports: None Oncologic (Cancer) History: Reports: None Dermatologic History: Reports: None - Infectious Disease History Infectious Disease History: Reports: Chicken Pox, Hepatitis C - Past Surgical History HEENT Surgical History: Reports: Adenoidectomy, Tonsillectomy Cardiovascular Surgical History: Reports: None GI Surgical History: Reports: Cholecystectomy, Colonoscopy, EGD Female Surgical History: Reports: Other (See Below) Other Female Surgeries/Procedures: Anal flap. Endocrine Surgical History: Reports: None Musculoskeletal Surgical History: Reports: Other (See Below) Other Musculoskeletal Surgeries/Procedures:: Back surgery L4-L5 fusion 2006 Social & Family History - Family History Family Medical History: Noncontributory - Caffeine Use Caffeine Use: Reports: Soda Other Caffeine Use: 32 OZ DAILY - Sexual History Sexual History: Reports: Sexually Active - Living Situation & Occupation Living situation: Reports: with Significant Other Occupation: Employed ED ROS GENERAL - Review of Systems Review Of Systems: Comprehensive ROS is negative, except as noted in HPI. ED EXAM, GI/ABD - Physical Exam Exam: See Below Exam Limited By: No Limitations General Appearance: Alert, WD/WN, Mild Distress Eyes: Bilateral: Normal Appearance, EOMI Ears: Normal External Exam, Normal Canal, Hearing Grossly Normal, Normal TMs Nose: Normal Inspection, Normal Mucosa, No Blood Throat/Mouth: Normal Inspection, Normal Lips, Normal Teeth, Normal Gums, Normal Oropharynx, Normal Voice, No Airway Compromise Head: Atraumatic, Normocephalic Neck: Normal Inspection, Supple, Non-Tender, Full Range of Motion Respiratory/Chest: No Respiratory Distress, Lungs Clear, Normal Breath Sounds, No Accessory Muscle Use, Chest Non-Tender Cardiovascular: Normal Peripheral Pulses, Regular Rate, Rhythm, No Edema, No Gallop, No JVD, No Murmur, No Rub GI/Abdominal Exam: Normal Bowel Sounds, No Organomegaly, No Distention, No Abnormal Bruit, No Mass, Pelvis Stable, Rebound, Tender (right sided) (Female) Exam: Deferred Rectal (Female) Exam: Deferred Back Exam: CVA Tenderness (R) Extremities: Normal Inspection, Normal Range of Motion, Non-Tender, Normal Capillary Refill, No Pedal Edema Neurological: Alert, Oriented, CN II-XII Intact, Normal Cognition, Normal Gait, Normal Reflexes, No Motor/Sensory Deficits Psychiatric: Normal Affect, Normal Mood Skin Exam: Warm, Dry, Intact, Normal Color, No Rash Lymphatic: No Adenopathy Course - Vital Signs Last Recorded V/S: Last Vital Signs Temp 36.6 C 10/10/19 15:52 Pulse 71 10/10/19 15:52 Resp 20 10/10/19 15:52 BP 118/69 10/10/19 15:52 Pulse Ox 100 10/10/19 15:52 - Orders/Labs/Meds Orders: Active Orders 24 hr Category Date Time Status Abdomen Pelvis w Cont [CT] Urgent Exams 10/10/19 16:29 Ordered Labs: Laboratory Tests 10/10/19 10/10/19 10/10/19 Range/Units 15:39 15:39 15:48 WBC (5.0-10.0) 10^3/uL RBC (4.2-5.4) 10^6/uL Hgb (12.0-16.0) g/dL Hct (37.0-47.0) % MCV (80-100) fL MCH (27.0-34.0) pg MCHC (33.0-35.0) g/dL Plt Count (150-450) 10^3/uL Neut % (Auto) (42.2-75.2) % Lymph % (Auto) (20.5-50.1) % [place] % (Auto) (2-8) % Eos % (Auto) (1.0-3.0) % Baso % (Auto) (0.0-1.0) % Sodium (136-145) mmol/L Potassium (3.5-5.1) mmol/L Chloride (98-107) mmol/L Carbon Dioxide (21-32) mmol/L Anion Gap (7-13) mEq/L BUN (7-18) mg/dL Creatinine (0.55-1.02) mg/dL Est Cr Clr Drug Dosing Estimated GFR (MDRD) BUN/Creatinine Ratio (No establ ref range) Glucose (74-99) mg/dL Lactic Acid (0.4-2.0) mmol/L Calcium (8.5-10.1) mg/dL Total Bilirubin (0.2-1.0) mg/dL AST (15-37) U/L ALT (14-59) U/L Alkaline Phosphatase (46-116) U/L Total Protein (6.4-8.2) g/dL Albumin (3.4-5.0) g/dL Globulin Albumin/Globulin Ratio Amylase 47 (25-115) U/L Lipase 69 L (73-393) U/L Urine Color Yellow (YELLOW) Urine Appearance Slightly cloudy (CLEAR) Urine pH 6.0 (5.0-9.0) Ur Specific [place] >= 1.030 (1.005-1.030) Urine Protein Negative (NEGATIVE) Urine Glucose (UA) Negative (NEGATIVE) Urine Ketones Negative (NEGATIVE) Urine Occult Blood Negative (NEGATIVE) Urine Nitrite Negative (NEGATIVE) Urine Bilirubin Negative (NEGATIVE) Urine Urobilinogen 0.2 (0.2-1.0) mg/dL Ur Leukocyte Esterase Negative (NEGATIVE) Urine Opiates Screen Negative (NEGATIVE) Ur Oxycodone Screen Negative (NEGATIVE) Urine Methadone Screen Negative (NEGATIVE) Ur Barbiturates Screen Negative (NEGATIVE) U Tricyclic Antidepress Negative (NEGATIVE) Ur Phencyclidine Scrn Negative (NEGATIVE) Ur Amphetamine Screen Positive H (NEGATIVE) U Methamphetamines Scrn Negative (NEGATIVE) Urine MDMA Screen Negative (NEGATIVE) U Benzodiazepines Scrn Negative (NEGATIVE) Urine Cocaine Screen Negative (NEGATIVE) U Marijuana (THC) Screen Positive H (NEGATIVE) 10/10/19 10/10/19 10/10/19 Range/Units 15:48 15:48 15:48 WBC 3.7 L (5.0-10.0) 10^3/uL RBC 4.00 L (4.2-5.4) 10^6/uL Hgb 9.5 L (12.0-16.0) g/dL Hct 29.7 L (37.0-47.0) % MCV 74.3 L (80-100) fL MCH 23.8 L (27.0-34.0) pg MCHC 32.0 L (33.0-35.0) g/dL Plt Count 175 (150-450) 10^3/uL Neut % (Auto) 42.2 (42.2-75.2) % Lymph % (Auto) 40.4 (20.5-50.1) % [place] % (Auto) 11.4 H (2-8) % Eos % (Auto) 4.9 H (1.0-3.0) % Baso % (Auto) 1.1 H (0.0-1.0) % Sodium 143 (136-145) mmol/L Potassium 3.2 L (3.5-5.1) mmol/L Chloride 105 (98-107) mmol/L Carbon Dioxide 32 (21-32) mmol/L Anion Gap 9.2 (7-13) mEq/L BUN 9 (7-18) mg/dL Creatinine 0.70 (0.55-1.02) mg/dL Est Cr Clr Drug Dosing TNP Estimated GFR (MDRD) > 60 BUN/Creatinine Ratio 12.9 (No establ ref range) Glucose 86 (74-99) mg/dL Lactic Acid 1.0 (0.4-2.0) mmol/L Calcium 7.8 L (8.5-10.1) mg/dL Total Bilirubin 0.2 (0.2-1.0) mg/dL AST 15 (15-37) U/L ALT 20 (14-59) U/L Alkaline Phosphatase 60 (46-116) U/L Total Protein 6.2 L (6.4-8.2) g/dL Albumin 3.2 L (3.4-5.0) g/dL Globulin 3.0 Albumin/Globulin Ratio 1.07 Amylase (25-115) U/L Lipase (73-393) U/L Urine Color (YELLOW) Urine Appearance (CLEAR) Urine pH (5.0-9.0) Ur Specific [place] (1.005-1.030) Urine Protein (NEGATIVE) Urine Glucose (UA) (NEGATIVE) Urine Ketones (NEGATIVE) Urine Occult Blood (NEGATIVE) Urine Nitrite (NEGATIVE) Urine Bilirubin (NEGATIVE) Urine Urobilinogen (0.2-1.0) mg/dL Ur Leukocyte Esterase (NEGATIVE) Urine Opiates Screen (NEGATIVE) Ur Oxycodone Screen (NEGATIVE) Urine Methadone Screen (NEGATIVE) Ur Barbiturates Screen (NEGATIVE) U Tricyclic Antidepress (NEGATIVE) Ur Phencyclidine Scrn (NEGATIVE) Ur Amphetamine Screen (NEGATIVE) U Methamphetamines Scrn (NEGATIVE) Urine MDMA Screen (NEGATIVE) U Benzodiazepines Scrn (NEGATIVE) Urine Cocaine Screen (NEGATIVE) U Marijuana (THC) Screen (NEGATIVE) Meds: Medications Discontinued Medications Generic Name Dose Route Start Last Admin Trade Name Freq PRN Reason Stop Dose Admin Iopamidol 100 ml 10/10/19 16:29 10/10/19 16:47 Isovue-300 (61%) IVPUSH 10/10/19 16:30 75 ml ONETIME ONE Administration Departure - Departure Time of Disposition: 17:07 Disposition: Home, Self-Care 01 Condition: Fair Clinical Impression: Colitis, Cystitis, Yeast infection of the vagina - Discharge Information *PRESCRIPTION DRUG MONITORING PROGRAM REVIEWED*: Not Applicable *COPY OF PRESCRIPTION DRUG MONITORING REPORT IN PATIENT MIAH: Not Applicable Instructions: Colitis, Vaginal Yeast Infection, Adult Forms: ED Department Discharge Care Plan Goals: The patient was advised of the examination, lab, and CT results during the visit. The patient was discharged with a script for Diflucan (150 mg) #2 to take 1 today repeat in 72 hours. The patient was encouraged to follow-up with her primary care facility and her GI specialist for continued evaluation and further management. If the patient has any additional symptoms or concerns, the patient should either return to the emergency department or visit her primary care facility. Sepsis Event Note - Focused Exam Vital Signs: Vital Signs Temp Pulse Resp BP Pulse Ox 10/10/19 15:52 36.6 C 71 20 118/69 100 Date Exam was Performed: 10/10/19 Time Exam was Performed: 17:07 - My Orders Last 24 Hours: My Active Orders 10/10/19 16:29 Abdomen Pelvis w Cont [CT] Urgent - Assessment/Plan Last 24 Hours: My Active Orders 10/10/19 16:29 Abdomen Pelvis w Cont [CT] Urgent
[2019-10-10 15:57] VITALS: BP 118/69; PULSE 71
[2019-10-10 16:26] LABS: ANION GAP 9.2 mEq/L (7-13); CHLORIDE,CL 105 mmol/L (98-107); SODIUM,NA 143 mmol/L (136-145)
[2019-10-10] MEDS ORDERED: Iopamidol 612 MG/ML 100 ML Bottle IVPUSH ONE (16:29)
== END 2019-10-10 17:25 | disposition home or self-care (01) ==
LOC: DL.ED 15:11
DX: N30.90 Cystitis, unspecified without hematuria (principal); B37.3 Candidiasis of vulva and vagina; K52.9 Noninfective gastroenteritis and colitis, unspecified; K21.9 Gastro-esophageal reflux disease without esophagitis; G62.9 Polyneuropathy, unspecified; Z88.2 Allergy status to sulfonamides; Z88.1 Allergy status to other antibiotic agents; Z88.6 Allergy status to analgesic agent; Z79.899 Other long term (current) drug therapy
CPT/HCPCS: 36415; 74177; 80053; 80305; 81003; 82150; 83605; 83690; 85025; 99284; Q9967

== ENCOUNTER 2021-04-17 20:37 | Emergency (ER) | payer MEDICAID ==
[2021-04-17] MEDS ORDERED: Famotidine 20 MG/2 ML SDV IVPUSH ONE (21:01)
[2021-04-17 21:20] LABS: CHLORIDE,CL 106 mmol/L (98-107); SODIUM,NA 143 mmol/L (136-145)
[2021-04-17] MEDS ORDERED: GI Cocktail Oral Solution 30 ML PO ONE (21:23)
--- NOTE | 2021-04-17 21:58 | CR ---
PROCEDURE INFORMATION: Exam: XR Chest Exam date and time: 04/17/2021 9:25 PM Age: 45 years old Clinical indication: Other: Chest pain TECHNIQUE: Imaging protocol: XR of the chest. Views: 1 view. COMPARISON: CR Chest 2V 05/08/2018 8:02 PM FINDINGS: Lungs: No suspicious pulmonary nodules or areas of lung consolidation. Pleural spaces: Unremarkable. No pleural effusion. No pneumothorax. Heart/Mediastinum: Unremarkable. No cardiomegaly. Bones/joints: Age appropriate. IMPRESSION: 1. No active disease of the chest. 2. No significant interval change when compared to the CR Chest 2V 05/08/2018 8:02 PM.
--- NOTE | 2021-04-17 22:08 | EDM.PDOC ---
ED HPI GENERAL MEDICAL PROBLEM - General Chief Complaint: Gastrointestinal Problem Stated Complaint: SEVERE CHEST PAINS Time Seen by Provider: 04/17/21 20:45 Source of Information: Reports: Patient, RN History Limitations: Reports: No Limitations - History of Present Illness INITIAL COMMENTS - FREE TEXT/NARRATIVE: ED with c/o chest pain, pointing epigastric and upper abdomen, describes as burning sensation. No fever or chills. Sinus congestion- chronic, occasional cough, No vomiting , some diarrhea after taking laxatives 2 days prior. Pain radiates to back similar with ulcer few years ago. Tried pepto and ibuprofen but not helping. - Related Data Allergies Allergy/AdvReac Type Severity Reaction Status Date / Time Sulfa (Sulfonamide Allergy Intermediate Hives Verified 04/17/21 20:54 Antibiotics) aspirin Allergy Cannot Verified 04/17/21 20:54 Remember levofloxacin [From Levaquin] Allergy Muscle Verified 04/17/21 20:54 Aches Home Meds: Home Meds Lisdexamfetamine [Vyvanse] 60 mg PO DAILY 08/05/13 [History] Pregabalin [Lyrica] 300 mg PO BID 08/05/13 [History] Ibuprofen 200 mg PO Q6HR PRN 09/28/16 [History] methocarbamoL [Methocarbamol] 500 mg PO TID 03/31/19 [History] Cetirizine HCl/Pseudoephedrine [ZyrTEC-D] 1 each PO DAILY 09/11/19 [History] Fluticasone Propionate [Flonase Allergy Relief] 1 - 2 spray NASBOTH DAILY PRN 09/11/19 [History] Omeprazole 20 mg PO DAILY 09/11/19 [History] Past Medical History HEENT History: Reports: Impaired Vision, Sinusitis Cardiovascular History: Reports: None Respiratory History: Reports: Bronchitis, Recurrent, Sleep Apnea Gastrointestinal History: Reports: GERD, Other (See Below) Other Gastrointestinal History: reports HX of gastric ulcers Genitourinary History: Reports: UTI, Recurrent [employer] OPERATOR History: Reports: None Musculoskeletal History: Reports: Back Pain, Chronic Other Musculoskeletal History: degenerative disc dx. bulging discs. spinal stenosis Neurological History: Reports: Neuropathy, Peripheral Psychiatric History: Reports: Anxiety, Depression Endocrine/Metabolic History: Reports: None Hematologic History: Reports: Anemia Immunologic History: Reports: None Oncologic (Cancer) History: Reports: None Dermatologic History: Reports: None - Infectious Disease History Infectious Disease History: Reports: Chicken Pox, Hepatitis C - Past Surgical History HEENT Surgical History: Reports: Adenoidectomy, Tonsillectomy Cardiovascular Surgical History: Reports: None GI Surgical History: Reports: Cholecystectomy, Colonoscopy, EGD Female Surgical History: Reports: Other (See Below) Other Female Surgeries/Procedures: Anal flap. Endocrine Surgical History: Reports: None Musculoskeletal Surgical History: Reports: Other (See Below) Other Musculoskeletal Surgeries/Procedures:: Back surgery L4-L5 fusion 2005 Social & Family History - Family History Family Medical History: No Pertinent Family History - Tobacco Use Tobacco Use Status *Q: Current Every Day Tobacco User Years of Tobacco use: 20 Packs/Tins Daily: 1 - Caffeine Use Caffeine Use: Reports: Soda Other Caffeine Use: 32 OZ DAILY - Recreational Drug Use Recreational Drug Use: No - Sexual History Sexual History: Reports: Sexually Active - Living Situation & Occupation Living situation: Reports: with Significant Other Occupation: Employed ED ROS GENERAL - Review of Systems Review Of Systems: Comprehensive ROS is negative, except as noted in HPI. ED EXAM, GI/ABD - Physical Exam Exam: See Below Exam Limited By: No Limitations General Appearance: Alert, Anxious, Mild Distress, Thin Eyes: Bilateral: EOMI Ears: Normal External Exam Nose: Normal Inspection Throat/Mouth: Normal Inspection Head: Atraumatic, Normocephalic Neck: Normal Inspection Respiratory/Chest: No Respiratory Distress, Lungs Clear, Normal Breath Sounds Cardiovascular: Normal Peripheral Pulses, Regular Rate, Rhythm GI/Abdominal Exam: Soft, Tender (epigastric, RLQ), Abnormal Bowel Sounds (hyper mid upper, slight decrease Right lower) Neurological: Alert, Oriented, Normal Cognition Psychiatric: Normal Affect, Normal Mood #1 Interpretation EKG Date: 04/17/21 Time: 20:43 Rhythm: NSR Rate (Beats/Min): 91 [place]: Normal P-Wave: Present QRS: Normal QT: Normal Comparison: NA - No Prior EKG Course - Vital Signs Last Recorded V/S: Last Vital Signs Temp 98.5 F 04/17/21 20:54 Pulse 94 04/17/21 20:54 Resp 20 04/17/21 20:54 BP 127/92 H 04/17/21 20:54 Pulse Ox 100 04/17/21 20:54 - Orders/Labs/Meds Orders: Active Orders 24 hr Category Date Time Status Sodium Chloride 0.9% [Normal Saline] 1,000 ml Med 04/17/21 22:12 Active IV .BOLUS Medication Orders Sodium Chloride (Normal Saline) 1,000 mls @ 999 mls/hr IV .BOLUS ONE Stop: 04/17/21 23:12 Last Admin: 04/17/21 22:26 Dose: 999 mls/hr Documented by: MACKENZIE Labs: Laboratory Tests 04/17/21 04/17/21 04/17/21 Range/Units 20:53 20:53 22:25 WBC 5.7 (5.0-10.0) 10^3/uL RBC 4.23 (4.2-5.4) 10^6/uL Hgb 12.7 D (12.0-16.0) g/dL Hct 38.4 (37.0-47.0) % MCV 90.8 D (80-100) fL MCH 30.0 (27.0-34.0) pg MCHC 33.1 (33.0-35.0) g/dL Plt Count 135 L (150-450) 10^3/uL Neut % (Auto) 68.7 (42.2-75.2) % Lymph % (Auto) 15.9 L (20.5-50.1) % [place] % (Auto) 11.7 H (2-8) % Eos % (Auto) 3.2 H (1.0-3.0) % Baso % (Auto) 0.5 (0.0-1.0) % Sodium 143 (136-145) mmol/L Potassium 4.0 (3.5-5.1) mmol/L Chloride 106 (98-107) mmol/L Carbon Dioxide 31 (21-32) mmol/L Anion Gap 10.0 (7-13) mEq/L BUN 12 (7-18) mg/dL Creatinine 0.62 (0.55-1.02) mg/dL Est Cr Clr Drug Dosing 105.28 mL/min Estimated GFR (MDRD) > 60 BUN/Creatinine Ratio 19.4 (No establ ref range) Glucose 78 (70-99) mg/dL Calcium 8.6 (8.5-10.1) mg/dL Total Bilirubin 0.2 (0.2-1.0) mg/dL AST 12 L (15-37) U/L ALT 18 (14-59) U/L Alkaline Phosphatase 69 (46-116) U/L Troponin I High Sens < 4 (<=51) pg/mL Total Protein 6.5 (6.4-8.2) g/dL Albumin 3.4 (3.4-5.0) g/dL Globulin 3.1 Albumin/Globulin Ratio 1.1 Amylase 61 (25-115) U/L Lipase 78 (73-393) U/L HCG, Qual Negative Urine Color Yellow (YELLOW) Urine Appearance Clear (CLEAR) Urine pH 7.0 (5.0-9.0) Ur Specific [place] 1.020 (1.005-1.030) Urine Protein Negative (NEGATIVE) Urine Glucose (UA) Negative (NEGATIVE) Urine Ketones Negative (NEGATIVE) Urine Occult Blood Negative (NEGATIVE) Urine Nitrite Negative (NEGATIVE) Urine Bilirubin Negative (NEGATIVE) Urine Urobilinogen 0.2 (0.2-1.0) mg/dL Ur Leukocyte Esterase Negative (NEGATIVE) Meds: Medications Generic Name Dose Route Start Last Admin Trade Name Freq PRN Reason Stop Dose Admin Sodium Chloride 1,000 mls @ 999 mls/hr 04/17/21 22:12 04/17/21 22:26 Normal Saline IV 04/17/21 23:12 999 mls/hr .BOLUS ONE Administration Discontinued Medications Generic Name Dose Route Start Last Admin Trade Name Freq PRN Reason Stop Dose Admin Al Hydroxide/Mg Hydroxide 30 ml 04/17/21 21:23 04/17/21 21:33 Gi Cocktail Oral Solution 30 Ml PO 04/17/21 21:24 30 ml ONETIME ONE Administration Famotidine 20 mg 04/17/21 21:01 04/17/21 21:07 Famotidine 20 Mg/2 Ml Sdv IVPUSH 04/17/21 21:02 20 mg ONETIME ONE Administration Fentanyl 50 mcg 04/17/21 22:45 Fentanyl 100 Mcg/2 Ml Sdv IVPUSH 04/17/21 22:46 ONETIME ONE Protocol Iopamidol 100 ml 04/17/21 22:23 04/17/21 22:24 Iopamidol 612 Mg/Ml 100 Ml Bottle IVPUSH 04/17/21 22:24 75 ml ONETIME ONE Administration Ondansetron HCl 4 mg 04/17/21 22:45 Ondansetron 4 Mg/2 Ml Sdv IVPUSH 04/17/21 22:46 ONETIME ONE Departure - Departure Time of Disposition: 22:51 Disposition: Home, Self-Care 01 Condition: Good Clinical Impression: Constipation by delayed colonic transit, GERD (gastroesophageal reflux disease) - Discharge Information *PRESCRIPTION DRUG MONITORING PROGRAM REVIEWED*: No *COPY OF PRESCRIPTION DRUG MONITORING REPORT IN PATIENT MIAH: No Instructions: Food Choices for Gastroesophageal Reflux Disease, Adult, Constipation, Adult, [id number] Forms: ED Department Discharge Additional Instructions: miralax one capful daily in 8 ounce liquid bland diet, avoid caffeine, spicy foods, acidic foods and juices clinic follow up sooner if fever, repeated vomiting or worsening of pain Sepsis Event Note (ED) - Evaluation Sepsis Screening Result: No Definite Risk - Focused Exam Vital Signs: Vital Signs Temp Pulse Resp BP Pulse Ox 04/17/21 20:54 98.5 F 94 20 127/92 H 100 - My Orders Last 24 Hours: My Active Orders 04/17/21 22:12 Sodium Chloride 0.9% [Normal Saline] 1,000 ml IV .BOLUS - Assessment/Plan Last 24 Hours: My Active Orders 04/17/21 22:12 Sodium Chloride 0.9% [Normal Saline] 1,000 ml IV .BOLUS
[2021-04-17] MEDS ORDERED: Sodium Chloride 0.9% 1,000 ML IV ONE (22:12)
[2021-04-17] MEDS ORDERED: Iopamidol 612 MG/ML 100 ML Bottle IVPUSH ONE (22:23)
--- NOTE | 2021-04-17 22:29 | CT ---
PROCEDURE INFORMATION: Exam: CT Abdomen And Pelvis With Contrast Exam date and time: 04/17/2021 10:02 PM Age: 45 years old Clinical indication: Other: Pain bloating TECHNIQUE: Imaging protocol: Computed tomography of the abdomen and pelvis with contrast. Radiation optimization: All CT scans at this facility use at least one of these dose optimization techniques: automated exposure control; mA and/or kV adjustment per patient size (includes targeted exams where dose is matched to clinical indication); or iterative reconstruction. Contrast material: ISOVUE 300; Contrast volume: 75 ml; Contrast route: INTRAVENOUS (IV); COMPARISON: CT Abdomen Pelvis w Cont 10/10/2019 4:50 PM FINDINGS: Liver: The liver is normal in architecture, without suspicious abnormality. Gallbladder and bile ducts: The gallbladder is surgically absent. Pancreas: The pancreatic parenchyma is normal in bulk and sharply marginated. Duct is not dilated. No calcifications, masses, or abnormal fluid collections. Spleen: Spleen is normal in size. No mass or fluid collection. Adrenal glands: There are no adrenal masses. Kidneys and ureters: Normal in parenchymal bulk. No hydronephrosis or asymmetric perinephric stranding. No solid masses. No stones. Stomach and bowel: No significant abnormalities of the stomach. There are no dilated or thickened small bowel loops. Gas and stool are seen in the colon to the rectum. No mass. Appendix: The appendix is seen. It is normal. Intraperitoneal space: No ascites. No abscess. No inflammation within the intra-abdominal fat. No pneumoperitoneum. No mass. Vasculature: No aneurysm. Lymph nodes: There are no enlarged celiac, mesenteric, periportal, extraperitoneal or inguinal lymph nodes. Urinary bladder: There is no bladder wall thickening, mass, or calculus. Reproductive: The uterus and ovaries are within normal limits. There are no adenexal masses. Dominant follicle right ovary incidental. Bones/joints: Hardware providing L5-S1 anterior and posterior fusion. There are no suspicious lytic or osteosclerotic lesions. No acute fracture. Soft tissues: Soft tissues are unremarkable. IMPRESSION: No sign of acute intra-abdominal pathology.
[2021-04-17] MEDS ORDERED: Ondansetron 4 MG/2 ML SDV IVPUSH ONE (22:45)
[2021-04-17] MEDS ORDERED: fentaNYL 100 MCG/2 ML SDV IVPUSH ONE (22:45)
[2021-04-17 23:45] VITALS: BP 133/82; PULSE 80
== END 2021-04-17 23:27 | disposition home or self-care (01) ==
LOC: DL.ED 20:37
DX: K59.01 Slow transit constipation (principal); K21.9 Gastro-esophageal reflux disease without esophagitis; Z88.2 Allergy status to sulfonamides; Z88.1 Allergy status to other antibiotic agents; Z88.8 Allergy status to other drugs, medicaments and biological substances; Z79.899 Other long term (current) drug therapy; Z72.0 Tobacco use
CPT/HCPCS: 36415; 71045; 74177; 80053; 81003; 82150; 83690; 84484; 84703; 85025; 93005; 96374; 96375; 99285; A9270; J2405; J3010; J3490; J7030; Q9967

== ENCOUNTER 2021-12-23 18:22 | Emergency (ER) | payer MEDICAID ==
[2021-12-23] MEDS ORDERED: Phenazopyridine 95 MG Tab PO ONE (19:42)
[2021-12-23] MEDS ORDERED: Amoxicillin/Clavulanate K 500-125 MG Tab PO ONE (19:43)
[2021-12-23 20:04] VITALS: BP 126/91; PULSE 95
== END 2021-12-23 20:01 | disposition home or self-care (01) ==
LOC: DL.ED 18:22
DX: N39.0 Urinary tract infection, site not specified (principal); R31.9 Hematuria, unspecified; K21.9 Gastro-esophageal reflux disease without esophagitis; Z88.2 Allergy status to sulfonamides; Z88.1 Allergy status to other antibiotic agents; Z88.8 Allergy status to other drugs, medicaments and biological substances; Z79.899 Other long term (current) drug therapy
CPT/HCPCS: 81001; 81025; 87086; 87088; 87186; 99283; 99284; A9270-GY

== ENCOUNTER 2022-04-05 16:34 | Emergency (ER) | payer MEDICAID | END 2022-04-05 20:49 | disposition left against medical advice (07) | LOC: MERGE 16:34 → DL.ED 16:34 | DX: Z53.21 Procedure and treatment not carried out due to patient leaving prior to being seen by health care provider (principal) | CPT/HCPCS: 81001; 87086 ==

== ENCOUNTER 2022-04-24 22:06 | Emergency (ER) | payer MEDICAID ==
[2022-04-24 23:00] LABS: ANION GAP 11.1 mEq/L (7-13); CHLORIDE,CL 105 mmol/L (98-107); SODIUM,NA 143 mmol/L (136-145)
[2022-04-24 23:07] LABS: ACETAMINOPHEN 0 ug/mL (10-30 (Therapeutic)); ESTIMATED GFR 99 mL/min (>=60)
[2022-04-25] MEDS ORDERED: Sodium Chloride 0.9% 1,000 ML IV ONE (00:58)
[2022-04-25 03:31] LABS: METHAMPHETAMINES,URINE NEGATIVE (NEGATIVE)
[2022-04-25 03:32] LABS: AMPHETAMINES,URINE POSITIVE (NEGATIVE); BARBITURATES,URINE NEGATIVE (NEGATIVE); BENZODIAZEPINE,URINE NEGATIVE (NEGATIVE); MDMA (ECSTASY), URINE NEGATIVE (NEGATIVE); METHADONE,URINE NEGATIVE (NEGATIVE); OPIATES,URINE NEGATIVE (NEGATIVE); OXYCODONE,URINE NEGATIVE (NEGATIVE); PHENCYCLIDINE,URINE NEGATIVE (NEGATIVE); TCA,URINE NEGATIVE (NEGATIVE)
== END 2022-04-25 04:25 | disposition home or self-care (01) ==
LOC: DL.ED 22:06
DX: F12.90 Cannabis use, unspecified, uncomplicated (principal); F19.10 Other psychoactive substance abuse, uncomplicated; Z88.2 Allergy status to sulfonamides; Z88.1 Allergy status to other antibiotic agents; Z88.6 Allergy status to analgesic agent; Z79.899 Other long term (current) drug therapy; Z90.49 Acquired absence of other specified parts of digestive tract
CPT/HCPCS: 36415; 80053; 80143; 80179; 80305; 80307; 81025; 83605; 84484; 85025; 93005; 96360; 99284; J7030

== ENCOUNTER 2022-06-25 17:50 | Emergency (ER) | payer MEDICAID ==
[2022-06-25 18:44] LABS: RESPIRATORY SYNCYTIAL VIR NAA NEGATIVE (NEGATIVE)
[2022-06-25 18:56] LABS: CORONAVIRUS COVID-19 NAA POSITIVE (NEGATIVE)
[2022-06-25] MEDS ORDERED: Ketorolac 30 MG/ML SDV IM ONE (19:06)
[2022-06-25] MEDS ORDERED: Acetaminophen 500 MG Tab PO ONE (19:07)
[2022-07-01 13:46] LABS: C.TRACHOMATIS BY TMA Negative (Negative); N.GONORRHOEAE BY TMA Negative (Negative)
== END 2022-06-25 19:50 | disposition home or self-care (01) ==
LOC: DL.ED 17:50
DX: U07.1 COVID-19 (principal); F17.210 Nicotine dependence, cigarettes, uncomplicated; Z88.2 Allergy status to sulfonamides; Z88.1 Allergy status to other antibiotic agents; Z88.8 Allergy status to other drugs, medicaments and biological substances
CPT/HCPCS: 0241U; 81003; 81025; 87081; 87430; 87491; 87563; 87591; 96372; 99283; A9270-GY; J1885

== ENCOUNTER 2022-07-25 11:10 | Emergency (ER) | payer MEDICAID | END 2022-07-25 12:58 | disposition home or self-care (01) | LOC: DL.ED 11:10 | DX: S43.401A Unspecified sprain of right shoulder joint, initial encounter (principal); S40.021A Contusion of right upper arm, initial encounter; Z88.2 Allergy status to sulfonamides; Z88.1 Allergy status to other antibiotic agents; Z88.8 Allergy status to other drugs, medicaments and biological substances; Y04.0XXA Assault by unarmed brawl or fight, initial encounter | CPT/HCPCS: 73060-RT; 73090-RT; 99283; 99284 ==

== ENCOUNTER 2023-05-02 13:37 | Emergency (ER) | payer MEDICAID ==
[2023-05-02] MEDS ORDERED: Ondansetron 4 MG Tab.DIS PO ONE (13:59)
[2023-05-02 15:20] LABS: APPEARANCE,URINE CLEAR (CLEAR); BILIRUBIN,URINE SMALL (NEGATIVE); COLOR,URINE YELLOW (YELLOW); GLUCOSE,URINE NEGATIVE (NEGATIVE); KETONES,URINE NEGATIVE (NEGATIVE); LEUKOCYTE ESTERASE,URINE NEGATIVE (NEGATIVE); NITRITE,URINE NEGATIVE (NEGATIVE); OCCULT BLOOD,URINE NEGATIVE (NEGATIVE); PH,URINE 5.5 (5.0-9.0); PROTEIN,URINE 30 (NEGATIVE); UROBILINOGEN,URINE 0.2 mg/dL (0.2-1.0)
[2023-05-02 15:31] LABS: MDMA (ECSTASY), URINE NEGATIVE (NEGATIVE); METHADONE,URINE NEGATIVE (NEGATIVE); METHAMPHETAMINES,URINE POSITIVE (NEGATIVE); OPIATES,URINE NEGATIVE (NEGATIVE)
[2023-05-02 15:32] LABS: AMPHETAMINES,URINE POSITIVE (NEGATIVE); BARBITURATES,URINE NEGATIVE (NEGATIVE); BENZODIAZEPINE,URINE NEGATIVE (NEGATIVE); OXYCODONE,URINE NEGATIVE (NEGATIVE); PHENCYCLIDINE,URINE NEGATIVE (NEGATIVE); TCA,URINE NEGATIVE (NEGATIVE)
[2023-05-02] MEDS ORDERED: Take Home: Ondansetron 4 MG Tab.DIS, 5 Tab Pack PO ONE (15:37)
[2023-05-02 15:40] LABS: BACTERIA,URINE MANY /HPF (0-FEW/HPF); EPITHELIAL CELLS,URINE MANY /HPF (NOT SEEN); RBC,URINE 0-5 /HPF (0-5)
== END 2023-05-02 15:51 | disposition home or self-care (01) ==
LOC: DL.ED 13:37
DX: R11.2 Nausea with vomiting, unspecified (principal); Z88.2 Allergy status to sulfonamides; Z88.1 Allergy status to other antibiotic agents; Z88.6 Allergy status to analgesic agent
CPT/HCPCS: 80305-QW; 81001; 81025; 99283; 99284; A9270-GY; Q0162

== ENCOUNTER 2023-07-25 18:25 | Emergency (ER) | payer MEDICAID | END 2023-07-25 19:40 | disposition home or self-care (01) | LOC: DL.ED 18:25 | DX: S99.921A Unspecified injury of right foot, initial encounter (principal); Z88.2 Allergy status to sulfonamides; Z88.8 Allergy status to other drugs, medicaments and biological substances; Z79.899 Other long term (current) drug therapy; Z90.49 Acquired absence of other specified parts of digestive tract; X50.1XXA Overexertion from prolonged static or awkward postures, initial encounter | CPT/HCPCS: 73610-RT; 73620-RT; 99282; 99283 ==

== ENCOUNTER 2024-02-05 13:12 | Emergency (ER) | payer MEDICAID ==
[2024-02-05] MEDS: Orphenadrine 60 MG/2 ML Inj IM ONE (14:10)
[2024-02-05] MEDS: Sodium Chloride 0.9% 1,000 ML IV SCH (14:10)
[2024-02-05] MEDS: Ketorolac 30 MG/ML SDV IVPUSH ONE (14:10)
[2024-02-05 14:12] LABS: BASOPHILS PERCENT AUTO 1.3 % (0.0-1.0); EOSINOPHILS PERCENT AUTO 6.6 % (1.0-3.0); HEMATOCRIT 39.5 % (37.0-47.0); HEMOGLOBIN 13.2 g/dL (12.0-16.0); LYMPHOCYTES PERCENT AUTO 18.8 % (20.5-50.1); MEAN CORPUSCULAR HEMOGLOBIN 28.6 pg (27.0-34.0); MEAN CORPUSCULAR HGB CONC 33.4 g/dL (33.0-35.0); MEAN CORPUSCULAR VOLUME 85.5 fL (80-100); MONOCYTES PERCENT AUTO 12.5 % (2-8); NEUTROPHILS PERCENT AUTO 60.8 % (42.2-75.2); PLATELET COUNT,PLT 125 10^3/uL (150-450); RED BLOOD CELL COUNT 4.62 10^6/uL (4.2-5.4)
[2024-02-05 14:33] LABS: ALANINE AMINOTRANSFERASE,ALT 51 U/L (14-59); ALBUMIN 3.3 g/dL (3.4-5.0); ALKALINE PHOSPHATASE 109 U/L (46-116); ANION GAP 6.9 mEq/L (7-13); ASPARTATE AMNIOTRANSFERASE,AST 23 U/L (15-37); BILIRUBIN TOTAL 0.3 mg/dL (0.2-1.0); BLOOD UREA NITROGEN,BUN 12 mg/dL (7-18); BUN/CREATININE RATIO 16.7 (No establ ref range); CALCIUM 8.9 mg/dL (8.5-10.1); CARBON DIOXIDE,CO2 29 mmol/L (21-32); CHLORIDE,CL 104 mmol/L (98-107); CREATININE 0.72 mg/dL (0.55-1.02); EST CRCL DRUG DOSING (CG) 87.85 mL/min; GLUCOSE RANDOM 105 mg/dL (70-99); MAGNESIUM 1.7 mg/dL (1.8-2.4); POTASSIUM,K 3.9 mmol/L (3.5-5.1); PROTEIN TOTAL,TP 6.6 g/dL (6.4-8.2); SODIUM,NA 136 mmol/L (136-145)
[2024-02-05 14:41] LABS: C-REACTIVE PROTEIN < 0.50 ng/dL (<=0.50); ESTIMATED GFR 104 mL/min (>=60)
[2024-02-05 16:38] LABS: APPEARANCE,URINE CLEAR (CLEAR); BILIRUBIN,URINE NEGATIVE (NEGATIVE); COLOR,URINE YELLOW (YELLOW); GLUCOSE,URINE NEGATIVE (NEGATIVE); KETONES,URINE NEGATIVE (NEGATIVE); LEUKOCYTE ESTERASE,URINE NEGATIVE (NEGATIVE); NITRITE,URINE NEGATIVE (NEGATIVE); OCCULT BLOOD,URINE NEGATIVE (NEGATIVE); PH,URINE 6.5 (5.0-9.0); PROTEIN,URINE NEGATIVE (NEGATIVE); UROBILINOGEN,URINE 0.2 mg/dL (0.2-1.0)
[2024-02-05 16:51] LABS: BACTERIA,URINE FEW /HPF (0-FEW/HPF); EPITHELIAL CELLS,URINE FEW /HPF (NOT SEEN); RBC,URINE 0-5 /HPF (0-5); WBC,URINE 0-5 /HPF (0-5/HPF)
[2024-02-05] MEDS ORDERED: Naloxone 2 MG/2 ML Syringe IVPUSH PRN (17:16)
[2024-02-05] MEDS: Ondansetron 4 MG/2 ML SDV IVPUSH ONE (17:24)
[2024-02-05] MEDS: Morphine 4 MG/ML Syringe IVPUSH ONE (17:25)
[2024-02-05] MEDS: Take Home: Cyclobenzaprine 10 MG Tab, 4 Tab Pack PO ONE (18:21)
== END 2024-02-05 18:23 | disposition home or self-care (01) ==
LOC: DL.ED 13:12
DX: R53.81 Other malaise (principal); Z88.1 Allergy status to other antibiotic agents; Z88.2 Allergy status to sulfonamides; Z88.8 Allergy status to other drugs, medicaments and biological substances; Z79.899 Other long term (current) drug therapy; Z86.16 Personal history of COVID-19; Z90.49 Acquired absence of other specified parts of digestive tract
CPT/HCPCS: 36415; 80053; 81001; 83735; 85025; 86140; 87635; 96372; 96374; 96375; 99284; A9270; J1885; J2270; J2360; J2405; J7030; 99283; U0002

== ENCOUNTER 2024-08-12 18:40 | Emergency (ER) | payer MEDICAID ==
[2024-08-12 20:22] LABS: APPEARANCE,URINE CLEAR (CLEAR); BILIRUBIN,URINE NEGATIVE (NEGATIVE); COLOR,URINE YELLOW (YELLOW); GLUCOSE,URINE NEGATIVE (NEGATIVE); KETONES,URINE NEGATIVE (NEGATIVE); LEUKOCYTE ESTERASE,URINE NEGATIVE (NEGATIVE); NITRITE,URINE NEGATIVE (NEGATIVE); OCCULT BLOOD,URINE NEGATIVE (NEGATIVE); PH,URINE 5.5 (5.0-9.0); PROTEIN,URINE NEGATIVE (NEGATIVE); UROBILINOGEN,URINE 0.2 mg/dL (0.2-1.0)
== END 2024-08-12 20:47 | disposition home or self-care (01) ==
LOC: DL.ED 18:40
DX: N76.0 Acute vaginitis (principal); N95.2 Postmenopausal atrophic vaginitis; J31.0 Chronic rhinitis; J32.9 Chronic sinusitis, unspecified; F17.210 Nicotine dependence, cigarettes, uncomplicated; Z88.1 Allergy status to other antibiotic agents; Z88.2 Allergy status to sulfonamides; Z88.8 Allergy status to other drugs, medicaments and biological substances; Z79.899 Other long term (current) drug therapy; Z86.16 Personal history of COVID-19; Z90.49 Acquired absence of other specified parts of digestive tract
CPT/HCPCS: 81003; 87210; 99283

== ENCOUNTER 2025-01-24 14:38 | Emergency (ER) | payer MEDICAID ==
[2025-01-24 15:42] LABS: APPEARANCE,URINE CLEAR (CLEAR); GLUCOSE,URINE NEGATIVE (NEGATIVE); OCCULT BLOOD,URINE NEGATIVE (NEGATIVE)
[2025-01-24 15:45] LABS: AMPHETAMINES,URINE NEGATIVE (NEGATIVE); BARBITURATES,URINE NEGATIVE (NEGATIVE); MDMA (ECSTASY), URINE NEGATIVE (NEGATIVE); METHAMPHETAMINES,URINE NEGATIVE (NEGATIVE); OPIATES,URINE NEGATIVE (NEGATIVE); OXYCODONE,URINE NEGATIVE (NEGATIVE); PHENCYCLIDINE,URINE NEGATIVE (NEGATIVE); TCA,URINE NEGATIVE (NEGATIVE)
[2025-01-24 15:53] LABS: EPITHELIAL CELLS,URINE FEW /HPF (NOT SEEN)
== END 2025-01-24 16:59 | disposition home or self-care (01) ==
LOC: DL.ED 14:38
DX: S06.0X0A Concussion without loss of consciousness, initial encounter (principal); Z88.2 Allergy status to sulfonamides; Z79.899 Other long term (current) drug therapy; Z86.16 Personal history of COVID-19; Z90.49 Acquired absence of other specified parts of digestive tract; X58.XXXA Exposure to other specified factors, initial encounter
CPT/HCPCS: 70450; 70486; 80305-QW; 81001; 81025; 99283; 99284

== ENCOUNTER 2025-03-31 14:31 | Emergency (ER) | payer MEDICAID ==
[2025-03-31] MEDS: Tetracaine HCl/PF 0.5% 4 ML Bottle EYERT ONE (14:50)
[2025-03-31] MEDS: Fluorescein 1 MG Ophth Strip EYERT ONE (14:51)
[2025-03-31] MEDS: Erythromycin Base 0.5% Ophth Oint 3.5 GM Tube EYERT ONE (14:55)
== END 2025-03-31 15:05 | disposition home or self-care (01) ==
LOC: DL.ED 14:31
DX: S05.01XA Injury of conjunctiva and corneal abrasion without foreign body, right eye, initial encounter (principal); Z88.1 Allergy status to other antibiotic agents; Z88.2 Allergy status to sulfonamides; Z88.8 Allergy status to other drugs, medicaments and biological substances; Z79.899 Other long term (current) drug therapy; Z86.16 Personal history of COVID-19; Z90.49 Acquired absence of other specified parts of digestive tract; X58.XXXA Exposure to other specified factors, initial encounter
CPT/HCPCS: 99282; 99283; A9270-GY; J3490

== ENCOUNTER 2025-04-29 02:06 | Emergency (ER) | payer MEDICAID ==
[2025-04-29] MEDS: Take Home: Acetaminophen/HYDROcodone 325-5 MG, 5 Tab Pack PO ONE (03:15)
== END 2025-04-29 03:15 | disposition home or self-care (01) ==
LOC: DL.ED 02:06
DX: S93.401A Sprain of unspecified ligament of right ankle, initial encounter (principal); S93.601A Unspecified sprain of right foot, initial encounter; Z88.2 Allergy status to sulfonamides; Z88.1 Allergy status to other antibiotic agents; Z88.6 Allergy status to analgesic agent; Z79.899 Other long term (current) drug therapy; Z86.16 Personal history of COVID-19; X50.1XXA Overexertion from prolonged static or awkward postures, initial encounter; Y93.89 Activity, other specified
CPT/HCPCS: 73501; 73590; 73610; 73620; 99283; A9270